=== PATIENT | female | born 1995 | race Caucasian/White ===

== ENCOUNTER 2016-11-16 20:59 | Emergency (ER) | payer OTHER ==
[~2016-11-16] VITALS: Ht 170.2 cm; Wt 95.7 kg
[2016-11-16 21:22] VITALS: BP 127/79
--- NOTE | 2016-11-16 23:02 | NUR ---
TO ER BED 7
--- NOTE | 2016-11-16 23:19 | NUR ---
Patient being evaluated by physician at bedside.
--- NOTE | 2016-11-16 23:20 | NUR ---
21Y/F PT. PRESENTS TO ED WITH C/O RT. INNER THIGH ERYTHEMA WITH SWOLLEN X 3 DAYS. NO MEDICAL HX. AAO X4, AMBULATORY WITH STEADY GAIT. RT. INNER THIGH ERYTHEMA AND SWOLLEN. C/O PAIN 12/29. VSS, ER MADE AWARE OF PT. STATUS.
[2016-11-16] MEDS: IBUPROFEN 800 MG TAB PO ONE (23:41)
[2016-11-16] MEDS: LIDOCAINE 1% 500 MG/50 ML VIAL INJ ONE (23:43)
[2016-11-16] MEDS ORDERED: NEOMYCIN/POLYMYXIN/BACITRACIN 0.9 GM/1 PKT TP ONE (23:54)
[2016-11-17 00:01] VITALS: BP 122/71
--- NOTE | 2016-11-17 00:03 | NUR ---
Patient discharged with v/s stable. Written and verbal after care instructions given and explained. Patient alert, oriented and verbalized understanding of instructions. Ambulatory with steady gait. All questions addressed prior to discharge. ID band removed. Patient advised to follow up with PMD. Rx of MOTRIN 800 MG, BACTRIM DS 800/160 MG KEFLEX 500 MG given. Patient educated on indication of medication including possible reaction and side effects. Opportunity to ask questions provided and answered.
== END 2016-11-17 | disposition home or self-care (01) ==
LOC: MED 20:59
DX: L02.415 Cutaneous abscess of right lower limb (principal); R03.0 Elevated blood-pressure reading, without diagnosis of hypertension
CPT/HCPCS: 10060; 99283; J2001

== ENCOUNTER 2016-11-19 00:43 | Emergency (ER) | payer OTHER ==
[~2016-11-19] VITALS: Ht 170.2 cm; Wt 91.3 kg
[2016-11-19 00:47] VITALS: BP 139/80
--- NOTE | 2016-11-19 02:27 | NUR ---
PT TAKEN TO BED 8 Addendum: 11/19/16 at 0243 by ISSA Amendment sumit in EDM - 11/19/16 at 0243 by ISSA PAIN SCALE 6/10
--- NOTE | 2016-11-19 02:30 | NUR ---
FOR WOUND CHECK, ON HER RT THIGH, I &D WAS DONE 2 DAYS AGO. SKIN IS PINK/WARM/DRY; AAOX4 WITH EVEN AND STEADY GAIT; PATIENT STATES PAIN OF 0/10 AT THIS TIME; VSS; PATIENT POSITIONED FOR COMFORT; HOB ELEVATED; BEDRAILS UP X2; BED DOWN. ER MADE AWARE OF PT STATUS. Addendum: 11/19/16 at 0243 by ISSA PAIN SCALE 6/10
--- NOTE | 2016-11-19 03:00 | NUR ---
Dr. Randall evaluating patient at bedside.
[2016-11-19 03:20] VITALS: BP 127/63
--- NOTE | 2016-11-19 03:20 | NUR ---
Patient discharged with v/s stable. Written and verbal after care instructions given and explained. Patient verbalized understanding. Ambulatory with steady gait. All questions addressed prior to discharge. Advised to follow up with PMD.
== END 2016-11-19 03:20 | disposition home or self-care (01) ==
LOC: MED 00:43
DX: Z48.01 Encounter for change or removal of surgical wound dressing (principal)
CPT/HCPCS: 99283

== ENCOUNTER 2017-04-05 04:35 | Emergency (ER) | payer OTHER ==
[~2017-04-05] VITALS: Ht 170.2 cm; Wt 70.1 kg
[2017-04-05 04:38] VITALS: BP 148/77
--- NOTE | 2017-04-05 04:46 | NUR ---
PT TAKEN TO BED 3
--- NOTE | 2017-04-05 05:00 | NUR ---
PT PRESENTS TO ER C/O NOT EATING AND ANXIETY. PT STATES HER MOTHER TOLD HER TO COME IN FOR "NOT EATING". PT STATES SHE ATE A "GRANOLA BAR AND SANDWHICH". PT IS CALM, COOPERATIVE, AA&OX4, DENIES SOB, CP, DIZZINESS, N/V/D. PT SITTING IN BED ER MD AWARE OF PT STATUS.
[2017-04-05] MEDS ORDERED: HALOPERIDOL IM 5 MG/ML VIAL IM ONE (05:05)
[2017-04-05] MEDS ORDERED: diphenhydrAMINE 50 MG/ML VIAL IM ONE (05:05)
[2017-04-05 05:55] VITALS: BP 114/62
== END 2017-04-05 05:55 | disposition home or self-care (01) ==
LOC: MED 04:35
DX: G47.00 Insomnia, unspecified (principal); F20.0 Paranoid schizophrenia
CPT/HCPCS: 96372; 99284; J1200; J1630

== ENCOUNTER 2017-09-26 19:43 | Inpatient (IN) | payer OTHER ==
[~2017-09-26] VITALS: Ht 172.7 cm; Wt 63.5 kg
[2017-09-26 19:43] VITALS: BP 127/80
--- NOTE | 2017-09-26 19:50 | NUR ---
22Y/F BIBA WITH C/O LACERATION TO HER RT FOREHEAD, S/P FALL, PATIENT ETOH.DENIES N/V/D; SKIN IS PINK/WARM/DRY; AAOX4 WITH EVEN AND STEADY GAIT; LUNGS CLEAR BL; HR EVEN AND REGULAR; PT DENIES ANY FEVER, CP, SOB, OR COUGH AT THIS TIME; PATIENT STATES PAIN OF 0/10 AT THIS TIME; VSS; PATIENT POSITIONED FOR COMFORT; HOB ELEVATED; BEDRAILS UP X2; BED DOWN. ER MD MADE AWARE OF PT STATUS.
--- NOTE | 2017-09-26 20:39 | NUR ---
GAVE REPORT TO NERY PORTILLO
--- NOTE | 2017-09-26 20:40 | NUR ---
RECShaunna'D REPORT FROM TIBURCIO GABRIEL
--- NOTE | 2017-09-26 20:44 | NUR ---
PT ON STRETCHER, PULLED PIPE OUT OF BAG, SECURITY CALLED TO TAKE BELONGINGS. Addendum: 09/26/17 at 2329 by KEERTHI PT ON BED*
--- NOTE | 2017-09-26 21:00 | NUR ---
PT RIPPED OFF MONITOR AND LEFT ROOM WANDERING THROUGH ED, REDIRECTED TO ROOM. EDMD AWARE.
[2017-09-26] MEDS ORDERED: LIDOCAINE/EPI 2% 1:100000 20 ML VIAL INJ ONE (21:15)
--- NOTE | 2017-09-26 21:45 | NUR ---
PT THREW CELL PHONE AT THE WALL WHILE JAMISON DOTSON WAS IN THE ROOM.
--- NOTE | 2017-09-26 21:51 | NUR ---
PT ASSISTED TO RESTROOM TO PROVIDE URINE SPECIMEN, PT THREW CUP IN TOILET AND URINATED ON IT. EDMD AWARE.
--- NOTE | 2017-09-26 22:36 | NUR ---
PT THREW CUP OF WATER AT THE DOOR, LAUGHING ABOUT HOW IT WAS NOT HER
--- NOTE | 2017-09-26 22:44 | NUR ---
ASKED PATIENT FOR URINE SPECIMEN PATIENT STATED "GET OUT OF MY ROOM YOU DUMB BITCH."
[2017-09-26] MEDS ORDERED: HALOPERIDOL IM 5 MG/ML VIAL IM ONE (23:00)
[2017-09-26] MEDS ORDERED: LORazepam 2 MG/ML VIAL IM ONE (23:00)
[2017-09-26] MEDS ORDERED: diphenhydrAMINE 50 MG/ML VIAL IM ONE (23:00)
--- NOTE | 2017-09-26 23:00 | NUR ---
PT SITTING ON EDGE OF STRETCHER, WHEN ATTEMPTING TO MEDICATE PT, PT STATED "AW FUCK NO GET THE HELL AWAY FROM ME." EDMD MADE AWARE.
--- NOTE | 2017-09-26 23:15 | NUR ---
PT REFUSING MONITOR. EDMD AWARE.
--- NOTE | 2017-09-26 23:40 | NUR ---
PT RESTING ON BED ON FULL MONITOR, APPEARS TO BE SLEEPING. VSS, NAD NOTED.
--- NOTE | 2017-09-27 | NUR ---
# 16 FR Urinary catheter inserted utilizing sterile technique. Immediate return of 200 ml YELLOW urine noted. Urine sample collected and sent to lab. Pt tolerated procedure WELL.
--- NOTE | 2017-09-27 00:16 | NUR ---
CT CALLED AND NOTIFIED PT READY FOR CT.
--- NOTE | 2017-09-27 00:34 | NUR ---
PT BACK FROM CT, PLACED ON MONITOR.
--- NOTE | 2017-09-27 01:07 | NUR ---
REPORT GIVEN TO DOROTHY GABRIEL
--- NOTE | 2017-09-27 01:30 | NUR ---
Patient appears to be resting comfortably in bed. Vital Signs within normal limits. Respirations even and unlabored.
--- NOTE | 2017-09-27 03:30 | NUR ---
Patient appears to be resting comfortably in bed. Vital Signs within normal limits. Respirations even and unlabored.
[2017-09-27] MEDS ORDERED: LIDOCAINE JELLY 2% 30 ML TUBE TP ONE ×2 (03:56→05:00)
--- NOTE | 2017-09-27 04:00 | NUR ---
Patient has a laceration to RT FOREHEAD. Dr. GUERRIER applied sutures using sterile technique. Edges well approximated. Site cleansed with BETADINE. No bleeding noted. Pt tolerated well.
[2017-09-27 04:41] LABS: BASOPHILS % (AUTO) 0.4 % (0.0-2.0); EOSINOPHILS # (AUTO) 0.2 K/uL (0-0.4); EOSINOPHILS % (AUTO) 2.4 % (0.0-4.0); HEMATOCRIT 37.3 % (36-48); HEMOGLOBIN 11.8 g/dL (12.0-16.0); LYMPHOCYTES # (AUTO) 3.3 K/uL (2.5-16.5); LYMPHOCYTES % (AUTO) 50.4 % (20.5-51.1); MEAN CORPUSCULAR HEMOGLOBIN 25 pg (27-31); MEAN CORPUSCULAR HGB CONC 32 g/dL (33-37); MEAN CORPUSCULAR VOLUME 79.2 fL (80-94); MONOCYTES # (AUTO) 1.1 K/uL (0.8-1.0); MONOCYTES % (AUTO) 16.8 % (1.7-9.3); PLATELET COUNT (AUTO) 214 K/uL (140-450); RED BLOOD CELL COUNT(AUTO) 4.71 MIL/uL (4.20-5.40); RED CELL DISTRIBUTION WIDTH 17.5 % (11.6-13.7); WHITE BLOOD COUNT (AUTO) 6.5 K/uL (4.8-10.8)
[2017-09-27 04:58] LABS: BARBITURATE, URINE NEG. ng/ml (NEG <=200); BENZODIAZEPINE, URINE NEG. ng/mL (NEG <=200); CANNABINOID, URINE POS. ng/mL (NEG <=50); COCAINE, URINE NEG. ng/mL (NEG <=300); OPIATE, URINE NEG. ng/mL (NEG <=2000); PHENCYCLIDINE SCREEN,URINE NEG. ng/mL (NEG <=25)
[2017-09-27 04:58] LABS: ANION GAP 8.9 (8-16); CARBON DIOXIDE 29.6 mmol/L (21-32); CREATININE 0.7 mg/dL (0.6-1.3); POTASSIUM 3.5 mmol/L (3.5-5.1)
[2017-09-27 05:00] LABS: SALICYLATE < 2.8 mg/dL (2.8-20.0)
[2017-09-27 05:01] LABS: ACETAMINOPHEN < 0.5 ug/ml (10-30)
[2017-09-27] MEDS ORDERED: ONDANSETRON 4 MG/2 ML VIAL IM/IVP PRN (05:15)
[2017-09-27] MEDS ORDERED: KETOROLAC 30 MG/ML VIAL IVP PRN (05:15)
[2017-09-27] MEDS ORDERED: HYDROcodone/APAP 7.5/325 MG 1 TAB PO PRN (05:15)
[2017-09-27] MEDS ORDERED: ACETAMINOPHEN 325 MG TAB PO PRN (05:15)
[2017-09-27] MEDS ORDERED: NACL 0.9% 1,000 ML IV ONE (05:20)
--- NOTE | 2017-09-27 06:48 | NUR ---
Patient will be admitted to care of COUNTS INCLUDE 234 BEDS AT THE [facility]. Admited to ICU. Will go to room 2. Belongings list completed. Report to ЕКАТЕРИНА GABRIEL.
--- NOTE | 2017-09-27 06:50 | NUR ---
ADMITTED THIS 22 YEAR OLD FEMALE PATIENT FROM ER PER BED DUE TO ALOC. ASSISTED IN ICU 2; TRIES TO CONNECT TO STEWARD/STEWARDESS ECONOMY CLASS BUT PATIENT REFUSED AND STARTED CURSING ME.
--- NOTE | 2017-09-27 07:30 | NUR ---
ENDORSED TO DAY SHIFT RN CINDY FOR CONTINUITY OF CARE.
--- NOTE | 2017-09-27 07:30 | NUR ---
RECEIVED REPORT FROM STATIC BALANCER RN AT BEDSIDE, PT IS LETHARGIC, RESPOND TO PAINFUL STIMULI, UNABLE TO FOLLOW COMMANDS AND REFUSED TELE MONITOR AND VITAL SIGNED WITH AGITATION AND PULLING OUT THE MONITORS, AND GO BACK TO SLEEP AGAIN, NO S/S OF DISTRESS, NOT ABLE TO DO MORE ASSESSMENT AT THIS TIME, SAFETY MEASURES IN PLACE, CALL LIGHT WITHIN REACH, WILL CONTINUE TO MONITOR.
[2017-09-27 07:43] LABS: APPEARANCE,URINE CLEAR (CLEAR); BILIRUBIN,URINE NEGATIVE (NEGATIVE); BLOOD, URINE NEGATIVE (NEGATIVE); COLOR,URINE YELLOW (YELLOW); LEUKOCYTE ESTERASE ,URINE NEGATIVE (NEGATIVE); NITRITE, URINE NEGATIVE (NEGATIVE); UGLUCOSE NEGATIVE (NEGATIVE)
--- NOTE | 2017-09-27 08:15 | NUR ---
PT IS GOING TO TRANSFER TO [facility], REPORT GIVEN TO NERY OQUENDO AT BEDSIDE FOR CONTINUE OF CARE, PT IS STILL LETHARGIC AT THIS TIME, UNABLE TO FOLLOW COMMANDS.
[2017-09-27] MEDS: NACL 0.9% 1,000 ML IV SCH ×2 (09:00→17:01)
[2017-09-27 09:41] LABS: CHOL/HDL RATIO 1.9 (1-4.5); MAGNESIUM 2.3 mg/dL (1.8-2.4); PHOSPHORUS 4.6 mg/dL (2.5-4.9); THYROID STIMULATING HORMONE 2.64 uIU/mL (0.34-3.74)
--- NOTE | 2017-09-27 10:15 | NUR ---
PATIENT HAS BEEN SCREENED AND CATEGORIZED LOW NUTRITION RISK. PATIENT WILL BE SEEN WITHIN 7 DAYS OF ADMISSION. 10/03/[address]
[2017-09-27] MEDS ORDERED: MULTIVITAMIN-12 10 ML, THIAMINE 100 MG, FOLIC ACID 5 MG in NACL 0.9% 1,000 ML IV SCH (11:00)
--- NOTE | 2017-09-27 11:00 | NUR ---
PT REFUSED MULTIVITAMIN IVF, PT SAID " DON'T GIVE ME THE FUCKING MEDICATION ".
[2017-09-27] MEDS: LORazepam 2 MG/ML VIAL IM/IVP PRN (12:08)
[2017-09-27] MEDS ORDERED: HALOPERIDOL IM 5 MG/ML VIAL IM SCH (13:00)
[2017-09-27] MEDS: chlordiazePOXIDE 25 MG CAP PO SCH ×2 (13:23→17:00)
--- NOTE | 2017-09-27 17:53 | NUR ---
PT SLEEPING AT THIS MOMENT, NO S/S OF RESPIRATORY DISTRESS NOTED.
--- NOTE | 2017-09-27 19:15 | NUR ---
ENDORSED CARE TO PM NURSE.
--- NOTE | 2017-09-27 19:16 | NUR ---
NOTED SUTURED LACERATION ON THE RIGHT FOREHEAD, DRY AND INTACT, OPEN ON AIR.
--- NOTE | 2017-09-27 19:16 | NUR ---
ASSUMED THE ROLE NURSE-SITTER FOR THIS PATIENT, RECD. SLEEPING COMFORTABLY IN BED. HARD TO AROUSE BUT RESPIRATION EVEN AND UNLABORED. NO DISTRESS NOTED. IV OF SALINE LOCK AT THE LEFT AC G20, PATENT AND INTACT. NO APPEARANCE OF PAIN NOTED. WILL CONTINUE TO MONITOR PATIENT FOR SAFETY AND UNUSUAL BEHAVIOR.
--- NOTE | 2017-09-27 19:20 | NUR ---
AUNT CAME TO VISIT, SAT DOWN AND WAIT PATIENT TO WAKE UP.
--- NOTE | 2017-09-27 19:30 | NUR ---
WOKE UP, SAID SOME BAD WORDS WHEN ASKED WHERE SHE IS GOING. AUNT SPOKE WITH PATIENT BUT WENT STRAIGHT TO BATHROOM. PULLED OUT HER TELE BOX MONITOR AFTER VOIDING. OFFERED TO EAT MEAL AT THE BEDSIDE. STATED "WHAT IS THIS FUCKING FOOD." THROW RICE TO THE NURSE. AUNT ADVISED PATIENT TO CALM DOWN. ALLOWS NURSE TO TAKE HER VITAL SIGN. ATE THE FOOD ON THE TRAY.
[2017-09-27 20:00] VITALS: BP 99/54
--- NOTE | 2017-09-27 20:00 | NUR ---
FINISHED EATING, THROW HER TRAY TO THE TRASH, BACK TO BED AND SLEEP.
[2017-09-27] MEDS: QUEtiapine FUMARATE 25 MG TAB PO SCH (20:16)
--- NOTE | 2017-09-27 20:16 | NUR ---
AGREED TO TAKE NIGHT MEDICATION WITH THE HELP OF Addendum: 09/27/17 at 2020 by Sabine Keller LVN ERROR: WRONG NOTE ENTRY.
--- NOTE | 2017-09-27 20:16 | NUR ---
AGREED TO TAKE SEROQUEL WITH THE HELP OF THE AUNT WHO PERSUADE BUT REFUSED TELE BOX TO BE PUT ON.
--- NOTE | 2017-09-27 20:20 | NUR ---
TRANSFER TO [facility] TO TELE CATEGORY BY DR. LONDON.
--- NOTE | 2017-09-27 21:00 | NUR ---
SLEEPING COMFORTABLY IN BED.
--- NOTE | 2017-09-27 23:15 | NUR ---
WOKE UP, AMBULATED TO BR, THROW HER GOWN ON THE FLOOR, THEN PICK IT UP LATER AND PUT ON HERSELF. WHEN ASKED IF SHE NEEDED HELP STATED "NO". BACK TO [place] AND EAT HER LEFTOVER FROM DINNER TRAY.
--- NOTE | 2017-09-27 23:25 | NUR ---
WENT TO SINK AND WASH THE LOWER PORTION OF HER GOWN. WHEN ASKED IF SHE WANTS A NEW GOWN, REFUSED.
--- NOTE | 2017-09-27 23:30 | NUR ---
WENT BACK TO SLEEP IN HER BED.
--- NOTE | 2017-09-28 00:25 | NUR ---
WAKEN UP TO TRANSFER TO ROOM 121B, REFUSED TO USE W/C, SAY BAD WORDS TO CHARGE NURSE. AMBULATED TO ROOM WITH GENERAL MACHINE OPERATOR.
--- NOTE | 2017-09-28 01:23 | NUR ---
SLEEPING COMFORTABLY IN BED, SITTER MONITORING PATIENT NEAR DOOR.
--- NOTE | 2017-09-28 02:00 | NUR ---
REFUSED PICTURE OF LACERATION TO BE TAKEN.
[2017-09-28] MEDS: NACL 0.9% 1,000 ML IV SCH ×3 (03:01→23:01)
--- NOTE | 2017-09-28 05:30 | NUR ---
REFUSED BLOOD DRAW BY BEAUTY CULTURIST. CONTINUED SLEEPING.
[2017-09-28 06:21] LABS: T4 (THYROXINE) 6.8 ug/dL (4.5-12.0)
--- NOTE | 2017-09-28 06:25 | NUR ---
CONDITION REMAIN STABLE. STUBBORN AT TIMES. ENDORSED TO CHARGE NURSE TIBURCIO. NEW SITTER MONITORING PATIENT NEAR DOOR.
--- NOTE | 2017-09-28 07:26 | NUR ---
RECEIVED REPORT FROM VALIDATION MANAGER RN. PATIENT IS SLEEPING AT THIS TIME BUT AWAKENS EASILY. HAS NO SIGNS AND SYMPTOMS OF ACUTE DISTRESS NOTED AT THIS TIME. HAS IV TO THE LEFT AC 20G, SALINE LOCK AT THIS TIME. PATIENT HAS SITTER DUE TO UNPREDICTABLE BEHAVIOR. BED IN LOWEST POSITION, SIDE RAILS UP X2, CALL LIGHT WITHIN REACH. WILL CONTINUE TO MONITOR.
[2017-09-28 08:00] VITALS: BP 135/41
[2017-09-28] MEDS: FOLIC ACID 1 MG TAB PO SCH (09:00)
[2017-09-28] MEDS: MULTIVITAMIN 1 TAB PO SCH (09:00)
[2017-09-28] MEDS: THIAMINE 200 MG/2 ML VIAL IM SCH (09:00)
[2017-09-28] MEDS: chlordiazePOXIDE 25 MG CAP PO SCH ×3 (09:00→17:00)
--- NOTE | 2017-09-28 09:39 | NUR ---
PATIENT REFUSED HER MORNING MEDICATIONS. WILL CONTINUE TO MONITOR.
--- NOTE | 2017-09-28 10:15 | NUR ---
MERARI CHOPRA SITTING IN PATIENTS ROOM. WILL CONTINUE TO MONITOR.
--- NOTE | 2017-09-28 15:30 | NUR ---
SITTING BY PATIENTS ROOM. SHE IS BEING LOUD AND DISRUPTIVE, AND NON=-
--- NOTE | 2017-09-28 15:31 | NUR ---
NOT BEING COOPERATIVE WHEN TOLD NOT TO THROW THINGS.
[2017-09-28 16:00] VITALS: BP 110/55
[2017-09-28] MEDS ORDERED: HALOPERIDOL IM 5 MG/ML VIAL IM SCH (16:50)
--- NOTE | 2017-09-28 16:52 | NUR ---
ADMINISTERED HALDOL IM DUE TO PATIENT BEING AGITATED AND CUSSING AT THE DOCTORS. WILL CONTINUE TO MONITOR.
--- NOTE | 2017-09-28 17:40 | NUR ---
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 WILL FOLLOW THROUGH WITH ORDERS.
[2017-09-28] MEDS: CHLORHEXADINE GLUC 2% CLOTH TP SCH (18:00)
[2017-09-28] MEDS: MUPIROCIN 2% OINT 22 GM TUBE TP SCH (18:00)
--- NOTE | 2017-09-28 19:30 | NUR ---
ENDORSED PATIENT TO EDUCATION ASSISTANT RN FOR CONTINUITY OF CARE. PATIENT IN STABLE CONDITION.
--- NOTE | 2017-09-28 19:35 | NUR ---
RECEIVED PT. ASLEEP. PER AM RN NOT TO WAKE HER UP RT THEY HAD A HARD TIME KEEPING HER QUIET AND NOT ANXIOUS . PT. WAS MEDICATED WITH HALDOL IM PER AM RN RT VERY ANGRY AND THROWING THINGS INSIDE ROOM. SITTER 1:1. KEPT ALL THINGS REMOVABLE INSIDE ROOM.
[2017-09-28] MEDS: QUEtiapine FUMARATE 25 MG TAB PO SCH (21:00)
--- NOTE | 2017-09-28 22:19 | NUR ---
PT. REFUSED TO HAVE HER SEROQUEL. VERY ANGRY AND SHOUTING "NO". "IT MAKES ME SLEEP" EXPLAINED TO HER THAT IT WILL MAKE HER BETTER. "NO" "I KNOW WHAT IT IS" PT. ANGRY AND SAID"STAY AWAY" PT. TURNED HER BACK AND WENT BACK TO SLEEP. SITTER 1:1.
--- NOTE | 2017-09-29 02:12 | NUR ---
PT. UP AND ABOUT. WALKING AROUND ROOM AND REFUSED TO COMMUNICATE TO POUNDMASTER. USES FOUL,ABUSIVE WORDS. HX. BIPOLAR ANXIETY. ROM X 4. CLEAR SPEECH. TALKING AND TALKING BY HERSELF. PT. LAUGHING AND USING FOUL WORDS. PROVIDED WITH SANDWICH RT KEEP STATING SHE IS HUNGRY. PT. WALKED OUT OF ROOM LOOKING FOR FOOD. PACIFIED BY PROVIDING FOOD REQUESTED. PT. BACK IN ROOM. WILL CONTINUE TO MONITOR.
--- NOTE | 2017-09-29 03:00 | NUR ---
PT. IN BED AND TRYING TO SLEEP. NO ANXIETY NOTED AT THIS TIME. SITTER 1:1.
--- NOTE | 2017-09-29 04:40 | NUR ---
PT. SLEEPING. SITTER 1:1.
--- NOTE | 2017-09-29 06:28 | NUR ---
PT. STILL SLEEPING AT THIS TIME. SITTER 1:1. DEFIANT WITH CARE BEING RENDERED. REFUSED TO TAKE MEDICATIONS AND REFUSED TO HAVE HER BLOOD SPECIMEN TAKEN BY LABORATORY/DELIVERY NURSE BREAD SUPERVISOR.
--- NOTE | 2017-09-29 07:13 | NUR ---
PATIENT IS RESTING IN BED, AROUSABLE BY VOICE. REFUSES VITALS AND ASSESSMENT. PT IS VERBALLY ABUSIVE AND PHYSICALLY THREATENING. SITTER 1:1. ALL SAFETY MEASURES IN PLACE. WILL CONTINUE TO MONITOR.
--- NOTE | 2017-09-29 08:14 | NUR ---
PATIENT WALKED OUT OF ROOM TOWARDS EXIT DURING MD ROUNDS BUT TURNED AND HEADED BACK INTO HER ROOM. HAS BEEN VERBALLY ABUSIVE AND PHYSICALLY THREATENING. CONTINUES TO REFUSE VITALS AND ASSESSMENT. AMBULATES WITH STEADY GAIT. NO SIGNS OR SYMPTOMS OF DISTRESS. SITTER IN PLACE. AWAITING PYSCH PLACEMENT. ALL SAFETY MEASURES IN PLACE, WILL CONTINUE TO MONITOR.
--- NOTE | 2017-09-29 08:24 | NUR ---
PATIENT WALKING IN [facility], ASKING FOR CIGARETTES. WILL CONTINUE TO MONITOR. SECURITY HAS BEEN CALLED.
[2017-09-29] MEDS ORDERED: HALOPERIDOL IM 5 MG/ML VIAL IM PRN (08:40)
[2017-09-29] MEDS ORDERED: diphenhydrAMINE 50 MG/ML VIAL IVP SCH (08:44)
[2017-09-29] MEDS ORDERED: QUEtiapine FUMARATE 25 MG TAB PO SCH (09:00)
[2017-09-29] MEDS: MULTIVITAMIN 1 TAB PO SCH (09:00)
[2017-09-29] MEDS: FOLIC ACID 1 MG TAB PO SCH (09:00)
[2017-09-29] MEDS: QUEtiapine FUMARATE 25 MG TAB PO SCH ×2 (09:00→21:00)
[2017-09-29] MEDS: NICOTINE TRANSD SYS 7 MG/24 HR PATCH TD SCH ×2 (09:00→14:55)
[2017-09-29] MEDS: THIAMINE 200 MG/2 ML VIAL IM SCH (09:00)
[2017-09-29] MEDS: chlordiazePOXIDE 25 MG CAP PO SCH ×3 (09:00→16:22)
[2017-09-29] MEDS: NACL 0.9% 1,000 ML IV SCH ×2 (09:01→19:01)
[2017-09-29] MEDS: LORazepam 2 MG/ML VIAL IM/IVP PRN ×3 (09:03→15:13)
[2017-09-29] MEDS ORDERED: HALOPERIDOL IM 5 MG/ML VIAL IVP PRN (09:10)
--- NOTE | 2017-09-29 09:20 | NUR ---
ATIVAN IVP, BENADRYL IVP, AND HALDOL IVP ADMINISTERED PER MD ORDERS. PATIENT TOLERATED WITH NO AGITATION. REFUSES ORAL MEDICATIONS AND NICOTINE PATCH. WILL CONTINUE TO MONITOR SAFETY AND BEHAVIOR.
--- NOTE | 2017-09-29 09:35 | NUR ---
PATIENT RESTING IN BED, WATCHING TV. NO SIGNS OF DISTRESS. WILL CONTINUE TO MONITOR.
--- NOTE | 2017-09-29 09:50 | NUR ---
PATIENT IS SLEEPING IN BED. RESPIRATIONS EVEN AND UNLABORED. NO SIGNS OF DISTRESS. WILL CONTINUE TO MONITOR.
--- NOTE | 2017-09-29 10:05 | NUR ---
PATIENT SLEEPING IN BED, NO SIGNS OF DISTRESS. WILL CONTINUE TO MONITOR.
--- NOTE | 2017-09-29 10:20 | NUR ---
PATIENT SEEN SLEEPING IN BED, NO SIGNS OF DISTRESS, RESPIRATIONS EVEN AND UNLABORED. WILL CONTINUE TO MONITOR.
--- NOTE | 2017-09-29 12:08 | NUR ---
PATIENT SEEN PACING IN [facility] HALLWAYS. UNCOOPERATIVE, REFUSES TO GO BACK TO ROOM. VOICE RAISED AGAINST STAFF AND VERBALLY THREATENING. ATIVAN IVP GIVEN PER MD ORDERS FOR AGITATION.
--- NOTE | 2017-09-29 13:08 | NUR ---
PATIENT SLEEPING IN BED. RESPIRATIONS ARE EVEN AND UNLABORED. WILL CONTINUE TO MONITOR. Addendum: 09/29/17 at 1456 by Latasha Nagel Meng, RN ONE HOUR AFTER ATIVAN IVP
--- NOTE | 2017-09-29 14:04 | NUR ---
PT SLEEPING SOUNDLY. NO SIGNS OF DISTRESS. SITTER AT THE DOOR. WILL CONTINUE TO MONITOR PT.
--- NOTE | 2017-09-29 14:55 | NUR ---
PT WALKING IN [facility], ASKING FOR CIGARETTES. INFORMED PATIENT THAT THIS IS NO SMOKING FACILITY. PATIENT AGREED TO NICOTINE PATCH. WILL ADMINISTER PER MD ORDERS. WILL CONTINUE TO MONITOR.
--- NOTE | 2017-09-29 15:14 | NUR ---
PATIENT PACING IN [facility]ALLWAYS, WITH VOICE RAISES AND AGGRESSIVE TOWARDS STAFF. IGNORES REQUESTS TO RE-ENTER ROOM. SECURITY NOTIFIED. ATIVAN IVP AND HALDOL IM GIVEN PER MD ORDERS FOR AGITATION. WILL CONTINUE TO MONITOR PT.
--- NOTE | 2017-09-29 15:29 | NUR ---
PATIENT SLEEPING IN BED, RESPIRATIONS EVEN AND UNLABORED. RR 16. NO SIGNS OF DISTRESS. WILL CONTINUE TO MONITOR. HALDOL IM AND ATIVAN IVP GIVEN 15 MIN AGO.
--- NOTE | 2017-09-29 15:44 | NUR ---
PATIENT SLEEPING IN BED, RESPIRATIONS EVEN AND UNLABORED. RR 17. NO SIGNS OF DISTRESS. WILL CONTINUE TO MONITOR. HALDOL IM AND ATIVAN IVP GIVEN 30 MIN AGO.
--- NOTE | 2017-09-29 15:59 | NUR ---
PATIENT SLEEPING IN BED, RESPIRATIONS EVEN AND UNLABORED. RR 16. NO SIGNS OF DISTRESS. WILL CONTINUE TO MONITOR. HALDOL IM AND ATIVAN IVP GIVEN 45 MIN AGO.
--- NOTE | 2017-09-29 16:14 | NUR ---
PATIENT SLEEPING IN BED, AROUSABLE BY VOICE. RESPIRATIONS EVEN AND UNLABORED. RR 16. NO SIGNS OF DISTRESS. REFUSES VITALS MONITORING. WILL CONTINUE TO MONITOR. HALDOL IM AND ATIVAN IVP GIVEN 60 MIN AGO.
[2017-09-29] MEDS: MUPIROCIN 2% OINT 22 GM TUBE TP SCH ×2 (18:00→22:43)
[2017-09-29] MEDS: CHLORHEXADINE GLUC 2% CLOTH TP SCH ×2 (18:00→21:00)
--- NOTE | 2017-09-29 18:10 | NUR ---
PATIENT WORKING ON COLORING BOOK IN BED. NO SIGNS OF AGITATION OR DISTRESS. WILL CONTINUE TO MONITOR.
--- NOTE | 2017-09-29 19:25 | NUR ---
ENDORSED PLAN OF CARE TO PHOTOGRAPH FINISHER RN. PT IN STABLE CONDITION.
--- NOTE | 2017-09-29 19:30 | NUR ---
RECEIVED PT FROM FERDINAND RN PT SWISS AND JAPANESE SPEAKER AAOX3 ON CONTACT ISOLATION FOR MRSA NARES POSITIVE, ON HL PT REFUSED IV FLUIDS, PT REMOVE TELEMETRY BOX, PT IS COMBATIVE WHEN WE TRY TO PUT BACK THE TELE BOX, PT CALM AT THIS TIME HX SCHIZOPRENIS, BIPOLAR PARANOID AND DX ALOC SITTER AT BED SIDE INITIAL ASSESSMENT DONE
[2017-09-29 20:00] VITALS: BP 112/68
--- NOTE | 2017-09-29 21:00 | NUR ---
PT IS TRANSFER TO ROOM 110 B SITTER 1:1 ,, GETTING TO SLEEP NOT AGITATION NOTED AT THIS TIME, ON CLOSE MONITORING
--- NOTE | 2017-09-29 23:00 | NUR ---
PT QUIET AT THIS TIME SLEEPING NOT SIGNS OF DISTRESS NOTED SITTER 1:1 AT BED SIDE
--- NOTE | 2017-09-30 01:00 | NUR ---
PT REMAIN STABLE SLEEPING SITTER AT BED SIDE NOT DISTRESS NOTED
--- NOTE | 2017-09-30 04:00 | NUR ---
PT HAS BEEN MONITORING CLOSE NOT AGITATION NOT SIGNS OF DISTRESS NOTED SITTER AT BED SIDE
[2017-09-30] MEDS: NACL 0.9% 1,000 ML IV SCH (05:01)
--- NOTE | 2017-09-30 06:53 | NUR ---
PT RESTING ON BED NOT DISTRESS NOTED WILL BE ENDORSED TO DAY SHIFT NURSE FOR CONTINUITY OF CARE
--- NOTE | 2017-09-30 06:54 | NUR ---
SITTER AT BE SIDE ALL TIMES
--- NOTE | 2017-09-30 07:15 | NUR ---
RECEIVED PATIENT FROM NIGHTSHIFT NURSE AT BEDSIDE. PATIENT SPEAKS GREENLANDIC AND MACEDONIAN. PATIENT ALERT AND ORIENTED X3. PATIENT ON CONTACT ISOLATION AT THIS TIME. ENCOURAGED PATIENT TO STAY IN ROOM. PATIENT IS SITTING ON SIDE OF BED AWAITING BREAKFAST. PATIENT APPEARS CALM AT THIS TIME. NO DISTRESS NOTED. NO PAIN NOTED. APPROPRIATE SIGNS PLACED OUTSIDE OF PATIENT'S ROOM. WILL CONTINUE TO MONITOR PATIENT.
--- NOTE | 2017-09-30 07:15 | NUR ---
PT ON BED RESTING REPORT GIVEN TOALFRED FOR CONTINUITY OF CARE
[2017-09-30 07:45] VITALS: BP 130/54
[2017-09-30] MEDS: chlordiazePOXIDE 25 MG CAP PO SCH ×3 (08:44→17:00)
[2017-09-30] MEDS: MULTIVITAMIN 1 TAB PO SCH (08:44)
[2017-09-30] MEDS: FOLIC ACID 1 MG TAB PO SCH (08:44)
[2017-09-30] MEDS: QUEtiapine FUMARATE 25 MG TAB PO SCH (08:44)
--- NOTE | 2017-09-30 08:44 | NUR ---
PATIENT TOOK ALL PO AM MEDICATIONS. PATIENT TOLERATED WELL. WILL CONTINUE TO MONITOR PATIENT.
[2017-09-30] MEDS: THIAMINE 200 MG/2 ML VIAL IM SCH (08:53)
--- NOTE | 2017-09-30 09:52 | NUR ---
PATIENT RESTING IN BED AT THIS TIME. NO DISTRESS NOTED. WILL CONTINUE TO MONITOR PATIENT.
--- NOTE | 2017-09-30 12:20 | NUR ---
PATIENT RESTING IN BED. NO DISTRESS NOTED. WILL CONTINUE TO MONITOR PATIENT.
--- NOTE | 2017-09-30 14:00 | NUR ---
PATIENT RESTING. NO DISTRESS NOTED. WILL CONTINUE TO MONITOR PATIENT.
--- NOTE | 2017-09-30 15:56 | NUR ---
NO DISTRESS NOTED. PATIENT SITTING ON SIDE OF BED. WILL CONTINUE TO MONITOR PATIENT.
[2017-09-30] MEDS ORDERED: QUET25TA46 PO (16:19)
--- NOTE | 2017-09-30 18:05 | NUR ---
PATIENT SIGNED ALL DISCHARGE INSTRUCTIONS. PATIENT REFUSED DISCHARGE PHOTO OF HER LACERATION STITCHES ON HER FACE. PATIENT AWARE OF PRESCRIPTION. PATIENT LEFT WITH ALL BELONGINGS. PATIENT AMBULATED OFF THE UNIT.
== END 2017-09-30 18:05 | disposition home or self-care (01) | DRG 917 ==
LOC: MED 19:43 → MIC 09-27 05:18 → MTU 09-27 09:00
PROVIDERS: ADMIT General Practice; ATTEND General Practice
PROC: 0HQ0XZZ Repair Scalp Skin, External Approach (ICD-10-PCS; principal; 2017-09-27)
DX: T43.621A Poisoning by amphetamines, accidental (unintentional), initial encounter (principal); G92 Toxic encephalopathy; N17.0 Acute kidney failure with tubular necrosis; F20.0 Paranoid schizophrenia; F10.129 Alcohol abuse with intoxication, unspecified; S09.90XA Unspecified injury of head, initial encounter; E83.51 Hypocalcemia; F12.99 Cannabis use, unspecified with unspecified cannabis-induced disorder; F17.210 Nicotine dependence, cigarettes, uncomplicated; F20.9 Schizophrenia, unspecified; F15.10 Other stimulant abuse, uncomplicated; S01.81XA Laceration without foreign body of other part of head, initial encounter; W19.XXXA Unspecified fall, initial encounter; Y93.89 Activity, other specified; Y92.89 Other specified places as the place of occurrence of the external cause; Y99.8 Other external cause status; F31.9 Bipolar disorder, unspecified
CPT/HCPCS: 36415; 51702; 70450; 71045; 80048; 80305; 81003; 82040; 83036; 83690; 83735; 83880; 84100; 84436; 84443; 84479; 85025; 85610; 85730; 87081; 90471; 90715; 96372; 99285; A9153; G0480; G0482; J1200; J1630; J2001; J2060; J3411; J3490; J7030; Q0092

== ENCOUNTER 2018-02-14 00:55 | Emergency (ER) | payer OTHER ==
[~2018-02-14] VITALS: Ht 172.7 cm; Wt 63.5 kg
[2018-02-14 00:55] VITALS: BP 152/95
[~2018-02-14 00:55] MED LIST: QUET25TA46 PO
--- NOTE | 2018-02-14 01:00 | NUR ---
[facility] CALLED FOR 5150 EVAL. WILL SEND OUT UNIT SOON POSSIBLE. DEVAN HALL MADE AWARE
--- NOTE | 2018-02-14 01:56 | NUR ---
[facility] B[facility] SPEAKING W/ PARENTS , PT REFUSES TO ANSWER QUESTIONS , NO 5150 HOLD AT THIS TIME.
--- NOTE | 2018-02-14 02:00 | NUR ---
PT BIB PARENTS, PER PARENTS PT HAS HX OF 5150 HOLDS, BIPOLAR SCHIZOPHRENIA. PT WAS FOUND IN STREETS BY PARENTS AND PARENTS WISH FOR PT TO BE EVALUATED FOR PSYCH. PT IS SPEAKING WITH HERSELF, SUSPICIOUS. PT DENIES SUICIDAL IDEATION AT THIS TIME. PT IS VERY AGGRESSIVE VERBALLY TOWARDS STAFF, BUT COMPLIANT AT THIS TIME.
--- NOTE | 2018-02-14 02:08 | NUR ---
PT REFUSES TO URINATE AT THIS TIME, ER MADE AWARE.
--- NOTE | 2018-02-14 02:35 | NUR ---
PT REFUSED TO ALLOW EKG EXAM
[2018-02-14] MEDS ORDERED: LORazepam 2 MG/ML VIAL IM ONE (02:40)
[2018-02-14] MEDS ORDERED: HALOPERIDOL IM 5 MG/ML VIAL IM ONE (02:40)
--- NOTE | 2018-02-14 04:08 | NUR ---
EKG PERFORMED AT BEDSIDE. PT COVERED IN GOWN AND BLANKET DURING PROCEDURE
--- NOTE | 2018-02-14 04:11 | NUR ---
MOTHER [facility] NUMBER [phone]
[2018-02-14 04:13] LABS: BASOPHILS % (AUTO) 0.6 % (0.0-2.0); EOSINOPHILS # (AUTO) 0.1 K/uL (0-0.4); HEMATOCRIT 38.3 % (36-48); HEMOGLOBIN 12.5 g/dL (12.0-16.0); LYMPHOCYTES # (AUTO) 2.9 K/uL (2.5-16.5); MEAN CORPUSCULAR HEMOGLOBIN 26 pg (27-31); MEAN CORPUSCULAR HGB CONC 33 g/dL (33-37); MEAN CORPUSCULAR VOLUME 79.2 fL (80-94); MONOCYTES # (AUTO) 0.6 K/uL (0.8-1.0); MONOCYTES % (AUTO) 7.8 % (1.7-9.3); NEUTROPHILS # (AUTO) 3.7 K/uL (1.8-7.7); NEUTROPHILS % (AUTO) 50.6 % (42.2-75.2); PLATELET COUNT (AUTO) 242 K/uL (140-450); RED BLOOD CELL COUNT(AUTO) 4.83 MIL/uL (4.20-5.40); RED CELL DISTRIBUTION WIDTH 16.2 % (11.6-13.7); WHITE BLOOD COUNT (AUTO) 7.3 K/uL (4.8-10.8)
--- NOTE | 2018-02-14 05:04 | NUR ---
PER TELEPSYCH REQUEST SENT
[2018-02-14 05:39] LABS: BARBITURATE, URINE NEG. ng/ml (NEG <=200); BENZODIAZEPINE, URINE NEG. ng/mL (NEG <=200); CANNABINOID, URINE POS. ng/mL (NEG <=50); COCAINE, URINE NEG. ng/mL (NEG <=300); OPIATE, URINE NEG. ng/mL (NEG <=2000); PHENCYCLIDINE SCREEN,URINE NEG. ng/mL (NEG <=25)
[2018-02-14 05:50] LABS: CREATINE KINASE MB 2.1 ng/mL (0-3.6)
--- NOTE | 2018-02-14 05:50 | NUR ---
DR SHELL ATTEMPTED TELEPSCYH CONSULT , PT AROUSABLE BUT SLURRED SPEECH AND IMMEDIATELY FALLS ASLEEP, WILL ATTEMPT TELEPSCYH CONSULT WHEN PT IS MORE AROUSABLE.
--- NOTE | 2018-02-14 06:47 | NUR ---
PT CONTINUES TO SLEEP IN BED, NO NEW NEEDS AT THIS TIME.
[2018-02-14 07:13] LABS: SALICYLATE < 2.8 mg/dL (2.8-20.0)
--- NOTE | 2018-02-14 07:16 | NUR ---
REPORT GIVEN TO NERY CARDENASSALES ADMINISTRATION MANAGER OF CARE AT THIS TIME.
[2018-02-14 07:25] LABS: CARBON DIOXIDE 24.2 mmol/L (21-32); POTASSIUM 3.2 mmol/L (3.5-5.1)
[2018-02-14 07:26] LABS: CREATININE 0.7 mg/dL (0.6-1.3); TOTAL BILIRUBIN 0.7 mg/dL (0.0-1.0)
--- NOTE | 2018-02-14 08:31 | NUR ---
PT STILL ASLEEP AT THIS TIME NO AGRESSIVE BEHAVIOUR NOTED, WILL CONTINUE TO MONITOR
--- NOTE | 2018-02-14 09:54 | NUR ---
PT SLEEPING COMFORTABLY AT THIS TIME, NO AGRESSIVE BEHAVIOUR NOTED, WILL CONTINUE TO MONITOR
--- NOTE | 2018-02-14 10:00 | NUR ---
not able to check vital signs at this time, pt is refused and agitated, talked dirty words to nurses.
--- NOTE | 2018-02-14 12:08 | NUR ---
pt still sleeping, no distress or agressive behaviour noted at this time
--- NOTE | 2018-02-14 12:31 | NUR ---
CALLED TELEPSYCH TO SET UP ANOTHER CONSULT S/W MAIKEL.
--- NOTE | 2018-02-14 12:48 | NUR ---
TELEPSYCH INITIATED WITH PATIENT AT THIS TIME
--- NOTE | 2018-02-14 12:49 | NUR ---
GIVEN REPORT TO DR AVERY, TELE PSYCH INITIATED WITH DIRECTOR OF REIMBURSEMENT ASSISTANCE PRECIOUS PT UNCOOPERATIVE, PLACE ON HOLD BY [facility] WILL BE NOTIFIED FOR 8100 HOLD
--- NOTE | 2018-02-14 12:50 | NUR ---
pt awoke for telepsych consult; verbally abusice towards MD. pt demanding to be allowed to sleep no other complaint at this time
--- NOTE | 2018-02-14 13:31 | NUR ---
CALLED [facility] TO WRITE [phone]
--- NOTE | 2018-02-14 13:42 | NUR ---
[place] pd at bedside
--- NOTE | 2018-02-14 13:55 | NUR ---
Per [place] [employer] pt did not meet 5150 criteria, Dr Randall notified
--- NOTE | 2018-02-14 13:59 | NUR ---
mother notified pt will be dc home. father will come to pick her up. notified [facility] did not place pt on 5150 hold.
--- NOTE | 2018-02-14 14:28 | NUR ---
PT AWAKE EATING LUNCH PROVIDED AT THIS TIME
--- NOTE | 2018-02-14 14:57 | NUR ---
pt ate about 90% of lunch provided, sleeping comfortably no distress noted waiting for parents/dad to pick her up
--- NOTE | 2018-02-14 15:59 | NUR ---
dc home instructions given to pt ----food tray was provided pt thankful, mother briefly was at bedside but pt cursed her out of room.
--- NOTE | 2018-02-14 16:09 | NUR ---
pt dressed, continued eating sandwich-----pt calm full clear speech, no tremors noted instructed to see therapist---list of providers handed to pt pt agreed she will seek f/u with therapist also advised no refrain from using methamphetamines
[2018-02-14 16:11] VITALS: BP 112/62
== END 2018-02-14 16:10 | disposition home or self-care (01) ==
LOC: MED 00:55
DX: F41.9 Anxiety disorder, unspecified (principal); F20.9 Schizophrenia, unspecified; F31.9 Bipolar disorder, unspecified; Z79.899 Other long term (current) drug therapy
CPT/HCPCS: 36415; 80053; 80305; 81025; 82550; 82553; 84484; 84702; 85025; 93005; 96372; 99284; G0480; G0482; J1630; J2060

== ENCOUNTER 2018-12-17 02:49 | Emergency (ER) | payer OTHER ==
[~2018-12-17] VITALS: Ht 170.2 cm; Wt 81.6 kg
[2018-12-17 03:06] VITALS: BP 93/54
--- NOTE | 2018-12-17 03:10 | NUR ---
PT AMBULATED TO LOBBY. PROVIDING URINE.
--- NOTE | 2018-12-17 03:20 | NUR ---
PT AMBULATED TO CHAIR B
--- NOTE | 2018-12-17 03:20 | NUR ---
23 Y/O FEMALE PRESENTS TO ED WITH C/O SEVERE GENERALIZED ITHCING. STATES SMOKIG MARIJUANA X2 HRS AGO AND STARTED "FEELING ITCHY." PT IS ANCTIOUS AND PACING. NO RASH. VSS. PT DENIES OTHER DRUG USE. DENIES HX. VSS. ER MD AWARE. CONTINUE TO MONITOR.
[2018-12-17 05:42] LABS: BASOPHILS % (AUTO) 0.5 % (0.0-2.0); EOSINOPHILS # (AUTO) 0.1 K/uL (0-0.4); HEMATOCRIT 38.9 % (36-48); HEMOGLOBIN 12.4 g/dL (12.0-16.0); LYMPHOCYTES % (AUTO) 30.7 % (20.5-51.1); MEAN CORPUSCULAR HEMOGLOBIN 24 pg (27-31); MEAN CORPUSCULAR HGB CONC 32 g/dL (33-37); MEAN CORPUSCULAR VOLUME 76.4 fL (80-94); MONOCYTES # (AUTO) 0.9 K/uL (0.8-1.0); MONOCYTES % (AUTO) 9.1 % (1.7-9.3); NEUTROPHILS # (AUTO) 5.8 K/uL (1.8-7.7); NEUTROPHILS % (AUTO) 58.7 % (42.2-75.2); PLATELET COUNT (AUTO) 323 K/uL (140-450); RED BLOOD CELL COUNT(AUTO) 5.09 MIL/uL (4.20-5.40); RED CELL DISTRIBUTION WIDTH 18.9 % (11.6-13.7); WHITE BLOOD COUNT (AUTO) 9.9 K/uL (4.8-10.8)
[2018-12-17 05:51] LABS: ANION GAP 14.3 (8-16); CARBON DIOXIDE 24.9 mmol/L (21-32); CREATININE 0.7 mg/dL (0.6-1.3); POTASSIUM 3.2 mmol/L (3.5-5.1)
[2018-12-17 05:57] LABS: ALBUMIN 4.1 g/dL (3.4-5.0); TOTAL BILIRUBIN 0.6 mg/dL (0.0-1.0)
--- NOTE | 2018-12-17 06:00 | NUR ---
EKG PERFORMED IN TRIAGE ROOM
[2018-12-17] MEDS ORDERED: hydrOXYzine HCL 25 MG TAB PO STA (06:08)
[2018-12-17 06:19] LABS: CREATINE KINASE MB 9.9 ng/mL (0-3.6)
--- NOTE | 2018-12-17 07:33 | NUR ---
PT REFUSED TO PROVIDE URINE
[2018-12-17 07:34] VITALS: BP 127/63
== END 2018-12-17 07:34 | disposition home or self-care (01) ==
LOC: MED 02:49
DX: L29.9 Pruritus, unspecified (principal); F12.10 Cannabis abuse, uncomplicated
CPT/HCPCS: 36415; 80053; 82550; 82553; 85025; 93005; 99284

== ENCOUNTER 2019-06-21 00:20 | Emergency (ER) | payer OTHER ==
[~2019-06-21] VITALS: Ht 170.2 cm; Wt 73.5 kg
[2019-06-21 00:28] VITALS: BP 144/74
--- NOTE | 2019-06-21 00:35 | NUR ---
PT TAKEN TO BED 11 Addendum: 06/21/19 at 0039 by MECCA PT TAKEN TO BED 12
--- NOTE | 2019-06-21 00:38 | NUR ---
24 YO FEMALE, BIB SELF FOR C/O ABD PAIN X 1 WEEK. + ACTIVE BOWEL SOUNDS. LAST BM YESTERDAY. DENIES N/V/D @ THIS TIME. PT DENIES CP/SOB. PT STATES SHE USED METH X 3 DAYS AGO AND SMOKES MARIJUANA. PT ERRATIC IN MOVEMENTS, RAPIDLY BLINKS EYES, TWITCHING EYES. SAFETY PRECAUTIONS IN PLACE. GOLDIE LOCKED IN LOWEST POSITION. WILL UPDATE ERMD. HX: DENIES RX: DENIES REC DRUGS: METH, MARIJUANA
--- NOTE | 2019-06-21 00:50 | NUR ---
Dr. Pereyra examining patient.
--- NOTE | 2019-06-21 01:10 | NUR ---
PT TAKEN TO RADIOLOGY FOR XRAY.
--- NOTE | 2019-06-21 01:30 | NUR ---
PT BACK FROM RADIOLOGY.
[2019-06-21 01:55] VITALS: BP 144/74
--- NOTE | 2019-06-21 01:56 | NUR ---
Patient discharged with v/s stable. Written and verbal after care instructions given and explained. Patient alert, oriented and verbalized understanding of instructions. Ambulatory with steady gait. All questions addressed prior to discharge. ID band removed. Patient advised to follow up with PMD. Rx of MIRALAX AND MINERAL OIL given. Patient educated on indication of medication including possible reaction and side effects. Opportunity to ask questions provided and answered.
== END 2019-06-21 01:56 | disposition home or self-care (01) ==
LOC: MED 00:20
DX: R10.9 Unspecified abdominal pain (principal); F19.10 Other psychoactive substance abuse, uncomplicated; R03.0 Elevated blood-pressure reading, without diagnosis of hypertension; F20.9 Schizophrenia, unspecified; F17.210 Nicotine dependence, cigarettes, uncomplicated; Z79.899 Other long term (current) drug therapy
CPT/HCPCS: 74022; 99283

== ENCOUNTER 2020-11-10 00:12 | Emergency (ER) | payer OTHER ==
[~2020-11-10] VITALS: Ht 172.7 cm; Wt 77.1 kg
[2020-11-10 00:12] VITALS: BP 101/64
--- NOTE | 2020-11-10 00:12 | NUR ---
25 Y/O PATIENT PRESENTS TO ED WITH ARM PAIN. DENIES N/V/D; SKIN IS PINK/WARM/DRY; AAOX4 WITH EVEN AND STEADY GAIT; LUNGS CLEAR BL; HR EVEN AND REGULAR; PT DENIES ANY FEVER, CP, SOB, OR COUGH AT THIS TIME; PATIENT STATES PAIN OF 5/10 AT THIS TIME; VSS; PATIENT POSITIONED FOR COMFORT; HOB ELEVATED; BEDRAILS UP X2; BED DOWN. ER MD MADE AWARE OF PT STATUS. PMH: SCHIZOPHRENIA NKA
--- NOTE | 2020-11-10 00:41 | NUR ---
PT TAKEN TO BED 4
[2020-11-10] MEDS ORDERED: LIDOCAINE MPF 1% 10 MG/ML VIAL INJ ONE (01:20)
--- NOTE | 2020-11-10 01:22 | NUR ---
Dr. Marqeuz examining patient.
--- NOTE | 2020-11-10 01:37 | NUR ---
PT TAKEN TO XRAY
[2020-11-10] MEDS ORDERED: IBUP-2218 PO (02:42)
[2020-11-10 02:50] VITALS: BP 101/64
== END 2020-11-10 02:50 | disposition home or self-care (01) ==
LOC: MED 00:12
DX: M25.531 Pain in right wrist (principal); M54.2 Cervicalgia; F41.9 Anxiety disorder, unspecified; Z79.899 Other long term (current) drug therapy
CPT/HCPCS: 72050; 73110; 99284